=== PATIENT | male | born 1975 | race Caucasian/White ===

== ENCOUNTER 2018-07-27 05:35 | Inpatient (IN) | payer BC, OTHER ==
[~2018-07-27] VITALS: Ht 167.6 cm; Wt 85.7 kg
[2018-07-27] MEDS ORDERED: LACTATED RINGERS 1,000 ML IV SCH (06:25)
[2018-07-27] MEDS ORDERED: LIDOCAINE-MPF 1%, 2ML INFIL ONE (06:30)
[2018-07-27] MEDS ORDERED: PARO20TA4 PO (06:33)
[2018-07-27] MEDS ORDERED: BACL-19 PO (06:33)
[2018-07-27] MEDS ORDERED: MELO15TA24 PO (06:33)
[2018-07-27 06:48] VITALS: BP 150/106
[2018-07-27] MEDS ORDERED: LIDOCAINE/PF 0.5% ,50ML ONE (07:04)
[2018-07-27] MEDS ORDERED: BUPIVACAINE/PF 0.25% ONE (07:04)
[2018-07-27] MEDS ORDERED: TOBRAMYCIN SULFATE 1.2 GM IMP ONE (07:05)
[2018-07-27] MEDS ORDERED: EPINEPHRINE 1 MG/ML, 1ML ONE (07:05)
[2018-07-27] MEDS ORDERED: THROMBIN 5,000 UNIT VIAL TP ONE (07:05)
[2018-07-27] MEDS ORDERED: VANCOMYCIN 1,000 MG ONE (07:05)
[2018-07-27] MEDS ORDERED: MIDAZOLAM 1 MG/ML, 2ML ONE (07:23)
[2018-07-27] MEDS ORDERED: PROPOFOL 50 ML ONE ×3 (07:23→09:16)
[2018-07-27] MEDS ORDERED: LIDOCAINE-MPF 2% ,5ML ONE (07:24)
[2018-07-27] MEDS ORDERED: CEFAZOLIN 1,000 MG ONE ×2 (07:24)
[2018-07-27] MEDS ORDERED: PROPOFOL 10 MG/ML, 20ML ONE ×2 (07:24→09:46)
[2018-07-27] MEDS ORDERED: FENTANYL PF 250 MCG/5ML ONE (07:24)
[2018-07-27] MEDS ORDERED: DEXAMETHASONE 4 MG/ML, 1ML ONE ×2 (07:24)
[2018-07-27] MEDS ORDERED: SUCCINYLCHOLINE 20 MG/ML, 10ML ONE (07:24)
[2018-07-27] MEDS ORDERED: ONDANSETRON 2MG/ML, 2ML ONE (07:24)
[2018-07-27] MEDS ORDERED: ACETAMINOPHEN 500 MG TABLET PO ONE (07:30)
[2018-07-27] MEDS ORDERED: FENTANYL PF 100 MCG/2ML IV PRN (07:30)
[2018-07-27] MEDS ORDERED: LORazepam 2 MG/ML, 1ML IVPush PRN (07:30)
[2018-07-27] MEDS ORDERED: METOPROLOL 1 MG/ML, 5ML IV PRN (07:30)
[2018-07-27] MEDS ORDERED: GABAPENTIN 300 MG CAPSULE PO ONE (07:30)
[2018-07-27] MEDS ORDERED: PROMETHAZINE 25 MG/ML, 1ML IV PRN (07:30)
[2018-07-27] MEDS ORDERED: HYDROmorphone 2 MG/ML, 1ML IVPush PRN (07:30)
[2018-07-27] MEDS ORDERED: hydrALAzine 20 MG/ML, 1ML IV PRN (07:30)
[2018-07-27] MEDS ORDERED: LABETALOL 5MG/ML, 20ML IV PRN ×2 (07:30→13:00)
[2018-07-27] MEDS ORDERED: ONDANSETRON 2MG/ML, 2ML IV PRN ×2 (07:30→13:00)
[2018-07-27] MEDS ORDERED: MEPERIDINE/PF 25MG/0.5ML IVPush PRN (07:30)
[2018-07-27] MEDS ORDERED: SCOPOLAMINE PATCH, 1.5MG PATCH.TD72 TD ONE (07:30)
[2018-07-27] MEDS ORDERED: LIDOCAINE 4%, 4 ML SYR/CANN TP ONE (07:32)
[2018-07-27] MEDS ORDERED: FENTANYL PF 100 MCG/2ML ONE (09:36)
[2018-07-27] MEDS ORDERED: BUPIVACAINE/PF 0.25% INFIL ONE (09:52)
[2018-07-27] MEDS ORDERED: HYDROmorphone 2 MG/ML, 1ML ONE (10:43)
[2018-07-27] MEDS ORDERED: OXYcodone 5 MG/5 ML ORAL.SOL UDC ONE (10:43)
[2018-07-27] MEDS: OXYcodone 5 MG/5 ML ORAL.SOL UDC PO PRN ×3 (10:44→15:28)
[2018-07-27 12:00] VITALS: BP 140/100
[2018-07-27] MEDS ORDERED: BISACODYL 10 MG SUPP PR PRN (13:00)
[2018-07-27] MEDS ORDERED: PROMETHAZINE 25 MG/ML, 1ML IM PRN (13:00)
[2018-07-27] MEDS ORDERED: MAGNESIUM HYDROXIDE 8%, 30ML UDC PO PRN (13:00)
[2018-07-27] MEDS ORDERED: HYDROcodone/APAP 10/325 MG TABLET PO PRN (13:00)
[2018-07-27 14:32] VITALS: BP 131/90
[2018-07-27] MEDS: D5%-0.9% NACL+KCL 20MEQ 1,000 ML IV SCH ×2 (14:47→23:00)
[2018-07-27] MEDS: CEFAZOLIN PMX 1GM/50ML 50 ML IVPB SCH ×2 (15:28→23:33)
[2018-07-27 17:39] VITALS: BP 131/81
[2018-07-27] MEDS: HYDROcodone/APAP 5/325 TABLET PO PRN (20:05)
[2018-07-27] MEDS: SENNA/DOCUSATE TABLET PO SCH (20:49)
[2018-07-27 21:50] VITALS: BP 109/67
[2018-07-28] MEDS: HYDROcodone/APAP 5/325 TABLET PO PRN ×4 (00:05→13:51)
[2018-07-28 04:19] VITALS: BP 111/73
[2018-07-28] MEDS: SENNA/DOCUSATE TABLET PO SCH (08:45)
[2018-07-28] MEDS ORDERED: PAROXETINE 20 MG TABLET PO SCH (09:00)
[2018-07-28] MEDS: D5%-0.9% NACL+KCL 20MEQ 1,000 ML IV SCH (09:00)
[2018-07-28] MEDS ORDERED: BACLOFEN 10 MG TABLET PO SCH (09:00)
[2018-07-28 09:50] VITALS: BP 120/63
[2018-07-28] MEDS ORDERED: HYDR-3240 PO (12:44)
== END 2018-07-28 13:41 | disposition home or self-care (01) | DRG 472 ==
LOC: ORIP 05:35 → 4NOR 11:58 → DCLOUNGE 07-28 13:30
PROVIDERS: ADMIT Orthopaedic Surgery Orthopaedic Surgery of the Spine; ATTEND Orthopaedic Surgery Orthopaedic Surgery of the Spine
PROC: 0RB30ZZ Excision of Cervical Vertebral Disc, Open Approach (ICD-10-PCS; 2018-07-27)
PROC: 4A11X4G Monitoring of Peripheral Nervous Electrical Activity, Intraoperative, External Approach (ICD-10-PCS; 2018-07-27)
PROC: 0RG10K0 Fusion of Cervical Vertebral Joint with Nonautologous Tissue Substitute, Anterior Approach, Anterior Column, Open Approach (ICD-10-PCS; principal; 2018-07-27 07:30)
DX: M48.02 Spinal stenosis, cervical region (principal); G99.2 Myelopathy in diseases classified elsewhere; G89.29 Other chronic pain; F41.9 Anxiety disorder, unspecified; F32.9 Major depressive disorder, single episode, unspecified; M54.12 Radiculopathy, cervical region
CPT/HCPCS: 72040; J3260; J3490; 95938; 95941; C1713; G0378; J0171; J0690; J1100; J1170; J2001; J2250; J2405; J2704; J3010; J3370; C1762; J0330; J3480; J7120